=== PATIENT | female | born 1965 | race Caucasian/White ===

== ENCOUNTER 2018-05-11 23:00 | Emergency (ER) | payer OTHER ==
[~2018-05-11] VITALS: Ht 167.6 cm; Wt 90.7 kg
[2018-05-11 23:00] VITALS: BP_SYST 124
[~2018-05-11 23:00] MED LIST: CLARATIN; PTU; THYROID MED PO; benadryl; excedrin
[2018-05-12] MEDS ORDERED: NACL 0.9% 1,000 ML IV ONE (00:04)
[2018-05-12] MEDS ORDERED: MAG HYDROX/AL HYDROX/SIMETH 30 ML, BELLADONNA ALKALOIDS/PHENOBARB 10 ML, LIDOCAINE VISC... PO ONE ×3 (00:15)
[2018-05-12] MEDS ORDERED: ASPIRIN 81 MG TAB.CHEW PO ONE (00:15)
[2018-05-12] MEDS ORDERED: MORPHINE 4 MG/ML INJ. SYRINGE IVP ONE (00:15)
[2018-05-12] MEDS ORDERED: NITROGLYCERIN 0.4 MG TAB.SUBL SL ONE (00:15)
[2018-05-12] MEDS ORDERED: ONDANSETRON HCL 4 MG/2 ML VIAL IVP ONE ×2 (00:15)
[2018-05-12] MEDS ORDERED: LORazepam 2 MG/ML VIAL (FOR ER USE) IVP ONE (00:15)
[2018-05-12 00:37] LABS: HEMATOCRIT 39.3 % (36-48); HEMOGLOBIN 12.6 g/dL (12.0-16.0); MEAN CORPUSCULAR HEMOGLOBIN 26 pg (27-31); MEAN CORPUSCULAR HGB CONC 32 % (32-36); MEAN CORPUSCULAR VOLUME 82 fL (79.0-98.0); PLATELET COUNT (AUTO) 362 K/uL (130-430); RED BLOOD CELL COUNT(AUTO) 4.79 MIL/uL (4.2-6.2); RED CELL DISTRIBUTION WIDTH 12.8 % (9.0-15.0)
[2018-05-12 00:50] LABS: CALCIUM 9.5 mg/dL (8.4-11.0); CREATININE 0.75 mg/dL (0.55-1.30); POTASSIUM 3.9 mmol/L (3.5-5.1)
[2018-05-12 00:57] LABS: ALBUMIN 3.1 g/dL (3.4-4.8); TOTAL BILIRUBIN 0.3 mg/dL (0.0-1.0)
[2018-05-12 01:02] LABS: PROTHROMBIN TIME 10.4 SECS (9.5-12.5)
[2018-05-12 02:09] LABS: BAND % (MANUAL) 5 % (0-6)
[2018-05-12 02:11] LABS: BASOPHILS % (MANUAL) 0 % (0-2); EOSINOPHILS % (MANUAL) 2 % (0-7); LYMPHOCYTES % (MANUAL) 17 % (20-46); MONOCYTES % (MANUAL) 6 % (0-11)
[2018-05-12 03:01] LABS: BILIRUBIN,URINE NEGATIVE (NEGATIVE); BLOOD, URINE 1+ (NEGATIVE); CLARITY/URINE CLEAR (CLEAR); COLOR,URINE YELLOW (YELLOW); GLUCOSE,URINE NEGATIVE (NEGATIVE); KETONES,URINE NEGATIVE (NEGATIVE); LEUKOCYTE ESTERASE ,URINE NEGATIVE (NEGATIVE); NITRITE, URINE NEGATIVE (NEGATIVE); PH,URINE 5.5 (5.0-8.0); PROTEIN URINE NEGATIVE (NEGATIVE); UROBILINOGEN,URINE 0.2 (0.2-1.0)
[2018-05-12] MEDS ORDERED: IOHEXOL 350 mgI/mL, 150 ML INFUS..BTL IV ONE (03:40)
[2018-05-12] MEDS ORDERED: KETOROLAC TROMETHAMINE 15 MG VIAL IVP ONE (04:30)
[2018-05-12 04:41] LABS: BACTERIA,URINE FEW /HPF (None Seen); WBC,URINE 0-3 /HPF (0-3)
[2018-05-12 04:42] LABS: MUCUS,URINE None Seen /LPF (None Seen); YEAST,URINE None Seen /HPF (None Seen)
[2018-05-12 06:00] VITALS: BP_SYST 104
== END 2018-05-12 06:16 | disposition home or self-care (01) ==
LOC: SED 23:00
DX: R07.89 Other chest pain (principal); E78.00 Pure hypercholesterolemia, unspecified; Z90.49 Acquired absence of other specified parts of digestive tract; Z98.51 Tubal ligation status
CPT/HCPCS: 36415; 71045; 71275; 80053; 81000; 82550; 83690; 83880; 84484; 85007; 85027; 85610; 85730; 93005 ×2; 93970; 96374; 96375; 99285; J1885; J2001; J2060; J2270; J2405; J7030; Q9967

== ENCOUNTER 2018-06-11 17:37 | Inpatient (IN) | payer OTHER ==
[2018-06-11] VITALS (7 sets, daily range): BP systolic 114–136
[~2018-06-11] VITALS: Ht 167.6 cm; Wt 91.6 kg
--- NOTE | 2018-06-11 17:50 | NUR ---
Pt placed in bed 5
--- NOTE | 2018-06-11 18:00 | NUR ---
Patient arrived from urgent care via POV with at bedside. patient is AOx4 withcomplaints of feeling very ill. Patient is tachypneic, diaphoretic and states "I feel dry." patient states she was just at the [facility] Urgent Care where she was diagnosied with pneumonia. The MD at [facility] Urgent Care told her to come to the emergency room for further testing. patient denies any other complaints or injuries at this time.
--- NOTE | 2018-06-11 18:03 | NUR ---
ER Dr. Griggs at bedside examining patient.
[2018-06-11] MEDS ORDERED: ALBUTEROL SULFATE 0.083% 2.5 MG/3 ML VIAL.NEB INH ONE (18:15)
[2018-06-11] MEDS ORDERED: ALBUTEROL SULFATE 0.083% 2.5 MG/3 ML VIAL.NEB INH PRN ×3 (18:15→19:15)
[2018-06-11] MEDS ORDERED: IPRATROPIUM BROM 0.5 MG/2.5 ML VIAL.NEB (ATROVENT) INH SCH (18:15)
[2018-06-11] MEDS ORDERED: LEVOFLOXACIN 500 MG/D5W 100 ML IV ONE ×2 (18:15→21:24)
--- NOTE | 2018-06-11 18:30 | NUR ---
Pt HR 172. Pt experiencing mild chest pain. Dr. Griggs at bedside. Orders to be received.
[2018-06-11 18:33] LABS: BILIRUBIN,URINE 1+ (NEGATIVE); BLOOD, URINE 3+ (NEGATIVE); CLARITY/URINE SL CLOUDY (CLEAR); COLOR,URINE YELLOW (YELLOW); GLUCOSE,URINE NEGATIVE (NEGATIVE); KETONES,URINE 3+ (NEGATIVE); LEUKOCYTE ESTERASE ,URINE TRACE (NEGATIVE); NITRITE, URINE NEGATIVE (NEGATIVE); PH,URINE 5.5 (5.0-8.0); PROTEIN URINE 2+ (NEGATIVE)
[2018-06-11 18:46] LABS: BACTERIA,URINE MANY /HPF (None Seen); MUCUS,URINE None Seen /LPF (None Seen)
--- NOTE | 2018-06-11 18:46 | NUR ---
2nd EKG done at bedside
[2018-06-11 18:47] LABS: BASOPHILS % (AUTO) 0.4 % (0.0-2.0); EOSINOPHILS % (AUTO) 0.1 % (0.0-4.0); HEMATOCRIT 35.1 % (36-48); HEMOGLOBIN 10.9 g/dL (12.0-16.0); LYMPHOCYTES # (AUTO) 0.8 K/uL (1.0-5.5); LYMPHOCYTES % (AUTO) 9.4 % (20.5-51.5); MEAN CORPUSCULAR HEMOGLOBIN 25 pg (27-31); MEAN CORPUSCULAR HGB CONC 31 % (32-36); MEAN CORPUSCULAR VOLUME 80 fL (79.0-98.0); MONOCYTES # (AUTO) 0.2 K/uL (0.0-1.0); MONOCYTES % (AUTO) 2.6 % (1.7-9.3); NEUTROPHILS % (AUTO) 87.5 % (40.0-70.0); PLATELET COUNT (AUTO) 251 K/uL (130-430); RED CELL DISTRIBUTION WIDTH 13.2 % (9.0-15.0)
[2018-06-11 18:47] LABS: COARSE GRANULAR CASTS,URINE 0-10 /LPF (None Seen)
[2018-06-11] MEDS ORDERED: DILTIAZEM HCL 25 MG/5 ML VIAL ONE (18:59)
[2018-06-11] MEDS ORDERED: AMIODARONE HCL 900 MG in D5W 482 ML IV ONE (19:00)
[2018-06-11] MEDS ORDERED: ASPIRIN 325 MG TABLET PO ONE (19:00)
[2018-06-11] MEDS ORDERED: DILTIAZEM HCL 25 MG/5 ML VIAL IVP ONE (19:00)
[2018-06-11] MEDS ORDERED: NACL 0.9% 1,000 ML IV ONE (19:00)
[2018-06-11] MEDS ORDERED: AMIODARONE HCL 150 MG in D5W 97 ML IV ONE (19:00)
[2018-06-11] MEDS: IPRATROPIUM BROM 0.5 MG/2.5 ML VIAL.NEB (ATROVENT) INH SCH ×2 (19:00→19:02)
[2018-06-11 19:01] LABS: CALCIUM 8.6 mg/dL (8.4-11.0); CREATININE 0.79 mg/dL (0.55-1.30); POTASSIUM 3.3 mmol/L (3.5-5.1)
[2018-06-11 19:02] LABS: INR 1.2 (0.8-1.2); PROTHROMBIN TIME 11.9 SECS (9.5-12.5)
[2018-06-11 19:05] LABS: ALBUMIN 2.5 g/dL (3.4-4.8); TOTAL BILIRUBIN 0.4 mg/dL (0.0-1.0)
[2018-06-11] MEDS ORDERED: AMIODARONE HCL 150 MG/3ML VIAL ONE (19:08)
[2018-06-11] MEDS ORDERED: AMIODARONE HCL 900 MG/18 ML VIAL IV ONE (19:08)
[2018-06-11] MEDS ORDERED: PIPERACILLIN/TAZO 3.375/DEX-IS 50 ML IV SCH (19:15)
[2018-06-11] MEDS ORDERED: IPRATROPIUM/ALBUTEROL SULFATE 3 ML AMPUL.NEB (DUONEB) INH PRN (19:15)
[2018-06-11] MEDS ORDERED: MAGNESIUM SULFATE 4 GM in D5W 250 ML IV ONE (19:15)
[2018-06-11] MEDS ORDERED: LEVOFLOXACIN 500 MG/D5W 100 ML IV SCH (19:15)
[2018-06-11] MEDS ORDERED: ONDANSETRON HCL 4 MG/2 ML VIAL IVP PRN (19:15)
[2018-06-11] MEDS ORDERED: MAGNESIUM SULFATE 100 ML IV ONE (19:29)
[2018-06-11] MEDS ORDERED: POTASSIUM CHLORIDE 40 MEQ in NS 250 ML IV ONE (19:30)
[2018-06-11] MEDS ORDERED: LEVOFLOXACIN 250 MG/D5W 50 ML IV ONE (19:30)
[2018-06-11] MEDS ORDERED: KCL 20 mEq in 100 mL (PREMIX) 200 ML IV ONE (19:30)
[2018-06-11 19:32] LABS: THYROID STIMULATING HORMONE < 0.01 uIu/mL (0.34-4.82)
--- NOTE | 2018-06-11 20:35 | NUR ---
Patient will be admitted to care of Dr. Woods. Admitted to ICU unit. Will go to room 4. Belongings list completed. Summary report printed. Report will be given at bedside.
--- NOTE | 2018-06-11 20:40 | NUR ---
ICU ADMISSION Pt is alert and oriented. AFIB on monitor. Pt on Amiodarone drip. 02 via NC @ 2L, SPO2 above 92%. Skin intact. IV22G to left and right forearm, no signs of infiltration noted. Safety precautions in place, call light within reach. Will continue to monitor.
--- NOTE | 2018-06-11 20:48 | NUR ---
CONSULTATION PAGED/CALLED Reason for Consultation: PNEUMONIA Person Who was Notified: INDER Consulting Physician: DR. ASHBY Welfare Administrator Specialty: PULMO Ordering Physician: DR. ROJAS
--- NOTE | 2018-06-11 20:55 | NUR ---
ROUNDS DR. CRYSTAL SIDHU AT PT BEDSIDE
[2018-06-11] MEDS ORDERED: METOPROLOL TARTRATE 25 MG TABLET PO SCH (21:00)
[2018-06-11] MEDS ORDERED: DIGOXIN 0.5 MG/2 ML AMP IVP ONE (21:15)
[2018-06-11] MEDS ORDERED: PIPERACILLIN/TAZOBACTAM 3.375 GM/VIAL (ZOSYN) IV ONE (21:25)
[2018-06-11] MEDS ORDERED: METOPROLOL TARTRATE 5 MG/5 ML VIAL IVP ONE (21:30)
--- NOTE | 2018-06-11 21:30 | NUR ---
MD ROUNDS DR. ASHBY AT BEDSIDE.
[2018-06-11] MEDS: MORPHINE 4 MG/ML INJ. SYRINGE IVP PRN (21:37)
[2018-06-11] MEDS: ENOXAPARIN SODIUM 100 MG/ML SYRINGE SQ SCH (21:38)
--- NOTE | 2018-06-11 21:52 | NUR ---
CONSULTATION PAGED/CALLED Reason for Consultation: AFIB Person Who was Notified: INDER Consulting Physician: DR. VERDUGO; ACOSTA- DR. PÉREZ Supervisor Pig Machine Specialty: CARDIO Ordering Physician: DR. ROJAS
--- NOTE | 2018-06-11 21:59 | NUR ---
PAGED DR. ÉPREZ (PLANT PRODUCTION MANAGER FOR [employer]) PAGED.
[2018-06-11] MEDS ORDERED: INDOMETHACIN 50 MG SUPP.RECT RC ONE (22:00)
--- NOTE | 2018-06-11 22:05 | NUR ---
Dr. Son spoke to Dr. Marin about pts current status. No new orders. Will continue to monitor.
[2018-06-11] MEDS: NACL 0.9% 1,000 ML IV SCH (22:14)
[2018-06-11] MEDS ORDERED: PROPRANOLOL HCL 10 MG TABLET (INDERAL) ONE ×3 (22:25→23:08)
[2018-06-11] MEDS: PROPRANOLOL HCL 10 MG TABLET (INDERAL) PO SCH (22:28)
[2018-06-11] MEDS: ACETAMINOPHEN 325 MG TABLET PO PRN (22:34)
[2018-06-11] MEDS ORDERED: PIPERACILLIN/TAZO 3.375/DEX-IS 50 ML IV ONE (23:15)
[2018-06-11] MEDS ORDERED: AMIODARONE HCL 900 MG in D5W 482 ML IV SCH (23:30)
[2018-06-12] VITALS (23 sets, daily range): BP systolic 96–155
[2018-06-12] MEDS: KETOROLAC TROMETHAMINE 15 MG VIAL ONE ×2 (00:27→00:29)
[2018-06-12] MEDS: KETOROLAC TROMETHAMINE 30 MG VIAL IVP PRN ×2 (00:29→17:07)
[2018-06-12] MEDS: IPRATROPIUM BROM 0.5 MG/2.5 ML VIAL.NEB (ATROVENT) INH SCH ×2 (00:57→19:51)
[2018-06-12] MEDS: PROPRANOLOL HCL 10 MG TABLET (INDERAL) PO SCH ×3 (06:34→21:08)
[2018-06-12] MEDS: MORPHINE 4 MG/ML INJ. SYRINGE IVP PRN ×2 (06:37→21:06)
[2018-06-12 06:38] LABS: BARBITURATE, URINE NEGATIVE (NEG <=200); BENZODIAZEPINE, URINE NEGATIVE (NEG <=150); CANNABINOID, URINE NEGATIVE (NEG <=50); COCAINE, URINE NEGATIVE (NEG <=150); METHAMPHETAMINES SCREEN,URINE NEGATIVE (NEG <=500); OPIATE, URINE POSITIVE (NEG <=100); PHENCYCLIDINE SCREEN,URINE NEGATIVE (NEG <=25); URINE AMPHETAMINE NEGATIVE (NEG <=500); URINE METHADONE NEGATIVE (NEG <=200)
[2018-06-12 06:39] LABS: UR TRICYCLIC ANTIDEPRESSANTS NEGATIVE (NEG <=300); URINE OXYCODONE SCREEN NEGATIVE (NEG <=100); URINE PROPOXYPHENE SCREEN NEGATIVE (NEG <=300)
[2018-06-12 07:15] LABS: BASOPHILS % (AUTO) 0.3 % (0.0-2.0); EOSINOPHILS # (AUTO) 0.1 K/uL (0.0-0.4); EOSINOPHILS % (AUTO) 0.6 % (0.0-4.0); HEMOGLOBIN 11.4 g/dL (12.0-16.0); LYMPHOCYTES # (AUTO) 0.9 K/uL (1.0-5.5); LYMPHOCYTES % (AUTO) 10.6 % (20.5-51.5); MEAN CORPUSCULAR HEMOGLOBIN 26 pg (27-31); MEAN CORPUSCULAR HGB CONC 33 % (32-36); MEAN CORPUSCULAR VOLUME 81 fL (79.0-98.0); MONOCYTES # (AUTO) 0.5 K/uL (0.0-1.0); MONOCYTES % (AUTO) 6.5 % (1.7-9.3); NEUTROPHILS # (AUTO) 6.9 K/uL (1.8-7.7); PLATELET COUNT (AUTO) 239 K/uL (130-430); RED BLOOD CELL COUNT(AUTO) 4.34 MIL/uL (4.2-6.2); RED CELL DISTRIBUTION WIDTH 13.9 % (9.0-15.0); WHITE BLOOD COUNT (AUTO) 8.4 K/uL (4.8-10.8)
--- NOTE | 2018-06-12 07:20 | NUR ---
ENDORSEMENT Pt care endorsed to CÉSAR Jerez at bedside using nursing SBAR.
--- NOTE | 2018-06-12 07:30 | NUR ---
OPENING NOTE RECEIVED SBAR REPORT FROM CÉSAR MERIDA AT BEDSIDE. BED IN LOWEST POSITION, CALL LIGHT WITHIN REACH, AND BED ALARM IS ACTIVE. SEE VS FLOW SHEET.
[2018-06-12 07:58] LABS: TOTAL IRON BIND. CAPACITY 179 ug/dL (250-450)
[2018-06-12 08:01] LABS: ALANINE AMINOTRANSFERASE 41 U/L (12-78); ALBUMIN 2.1 g/dL (3.4-4.8); ANION GAP 10 (5-15); ASPARTATE AMINOTRANSFERASE 49 U/L (10-37); CHLORIDE 101 mmol/L (98-107); FREE T4 (FREE THYROXINE) 1.5 ng/dL (0.6-1.6); GLUCOSE 109 mg/dL (70-99); SODIUM SERUM 134 mmol/L (136-145); THYROID STIMULATING HORMONE < 0.01 uIu/mL (0.34-4.82); TOTAL BILIRUBIN 0.5 mg/dL (0.0-1.0); UREA NITROGEN, BLOOD 15 mg/dL (8-21)
[2018-06-12 08:17] LABS: GFR AFRICAN AMERICAN 113 mL/min (>90)
[2018-06-12 08:18] LABS: POTASSIUM 4.9 mmol/L (3.5-5.1)
[2018-06-12] MEDS ORDERED: METOPROLOL TARTRATE 25 MG TABLET PO SCH (09:00)
[2018-06-12] MEDS: NACL 0.9% 1,000 ML IV SCH ×2 (10:09→15:43)
[2018-06-12] MEDS: cefTRIAXone 1 GM IVPB PREMIX 50 ML IV SCH (10:09)
[2018-06-12] MEDS: ENOXAPARIN SODIUM 100 MG/ML SYRINGE SQ SCH ×2 (10:13→21:07)
[2018-06-12] MEDS: ACETAMINOPHEN 325 MG TABLET PO PRN ×2 (10:23→23:11)
--- NOTE | 2018-06-12 10:25 | NUR ---
FEBRILE PT HAS A Hx OF FEVER. TEMP WAS 98.4 AT 0800, BUT IS NOW 104.8. TYLENOL ADMINISTERED ORDERED PRN, BLANKETS REMOVED, AND ICE PACKS APPLIED.
--- NOTE | 2018-06-12 11:55 | NUR ---
DR. VERDUGO (NURSING UNIT COORDINATOR) AT BEDSIDE NEW ORDERS RECEIVED.
--- NOTE | 2018-06-12 12:00 | NUR ---
TEMPERATURE 98.7
[2018-06-12] MEDS ORDERED: NACL 0.9% 1,000 ML IV ONE (12:15)
--- NOTE | 2018-06-12 12:35 | NUR ---
DR. ASHBY (REGIONAL PLANNER) AT BEDSIDE NEW ORDERS RECEIVED
[2018-06-12] MEDS ORDERED: PROMETHAZINE 6.25 MG/ CODEINE 10 MG/ 5 ML PO PRN (12:45)
[2018-06-12] MEDS: BENZONATATE 100 MG CAPSULE (TESSALON) PO SCH ×2 (14:28→21:07)
[2018-06-12] MEDS: AZITHROMYCIN 500 MG in NS 250 ML IV SCH (14:28)
[2018-06-12] MEDS ORDERED: KETOROLAC TROMETHAMINE 15 MG VIAL ONE (17:11)
--- NOTE | 2018-06-12 19:20 | NUR ---
ENDORSEMENT SBAR REPORT ENDORSED TO PM RN AT BEDSIDE.
--- NOTE | 2018-06-12 19:30 | NUR ---
TRANSFER OF CARE Report received from AM shift RN. Pt in bed AAOX4, VSS with AFIB on the monitor. IV on the RFA, LFA patent and no infiltration noted. Skin is non intact, noted a red rash on the left forearm. Safety precaution observed, call light within reach. No fever noted. Will continue to monitor Pt.
[2018-06-12] MEDS: DILTIAZEM HCL 25 MG/5 ML VIAL IVP PRN (22:19)
[2018-06-13] VITALS (24 sets, daily range): BP systolic 109–154
--- NOTE | 2018-06-13 | NUR ---
REASSESSMENT Pt in bed, temperature elevated at 101, will give PRN tylenol for fever. Will continue to monitor Pt.
[2018-06-13] MEDS: IPRATROPIUM BROM 0.5 MG/2.5 ML VIAL.NEB (ATROVENT) INH SCH ×4 (01:01→19:43)
--- NOTE | 2018-06-13 02:00 | NUR ---
CHG Cleaned and repositioned Pt, Pt able to tolerate well.
--- NOTE | 2018-06-13 04:00 | NUR ---
REASSESSMENT Pt in bed, no acute distress at this time. Will continue to monitor Pt.
[2018-06-13] MEDS: NACL 0.9% 1,000 ML IV SCH ×2 (04:23→18:23)
[2018-06-13] MEDS: DILTIAZEM HCL 25 MG/5 ML VIAL IVP PRN (04:25)
[2018-06-13] MEDS: PROPRANOLOL HCL 10 MG TABLET (INDERAL) PO SCH ×3 (05:09→21:23)
[2018-06-13] MEDS: ACETAMINOPHEN 325 MG TABLET PO PRN ×2 (05:09→10:01)
[2018-06-13] MEDS: MORPHINE 4 MG/ML INJ. SYRINGE IVP PRN ×3 (05:45→18:38)
--- NOTE | 2018-06-13 06:34 | NUR ---
CLOSING NOTES Pt in bed, no acute distress at this time. Dr. Early at bedside for medical evaluation. Will give report to oncoming RN.
--- NOTE | 2018-06-13 06:40 | NUR ---
CONSULTATION PAGED/CALLED Reason for Consultation: HYPERTHYROID Person Who was Notified: DEREK Consulting Physician: ANTONIO CRAWFORD Lemon Picker Specialty: ENDOCRINOLOGY Ordering Physician: DR. RIBEIRO
[2018-06-13 06:53] LABS: BASOPHILS % (AUTO) 0.2 % (0.0-2.0); EOSINOPHILS % (AUTO) 0.4 % (0.0-4.0); HEMATOCRIT 32.6 % (36-48); HEMOGLOBIN 10.8 g/dL (12.0-16.0); LYMPHOCYTES # (AUTO) 1.1 K/uL (1.0-5.5); LYMPHOCYTES % (AUTO) 12.6 % (20.5-51.5); MEAN CORPUSCULAR HEMOGLOBIN 26 pg (27-31); MEAN CORPUSCULAR HGB CONC 33 % (32-36); MEAN CORPUSCULAR VOLUME 80 fL (79.0-98.0); MONOCYTES # (AUTO) 0.8 K/uL (0.0-1.0); MONOCYTES % (AUTO) 8.9 % (1.7-9.3); NEUTROPHILS % (AUTO) 77.9 % (40.0-70.0); PLATELET COUNT (AUTO) 252 K/uL (130-430); RED BLOOD CELL COUNT(AUTO) 4.09 MIL/uL (4.2-6.2); RED CELL DISTRIBUTION WIDTH 13.8 % (9.0-15.0); WHITE BLOOD COUNT (AUTO) 8.9 K/uL (4.8-10.8)
[2018-06-13 06:55] LABS: ALBUMIN 1.9 g/dL (3.4-4.8); CREATININE 0.75 mg/dL (0.55-1.30); POTASSIUM 3.9 mmol/L (3.5-5.1); TOTAL BILIRUBIN 0.3 mg/dL (0.0-1.0)
--- NOTE | 2018-06-13 07:25 | NUR ---
RN OPENING NOTE RECEIVED SBAR REPORT FROM ENDORSING RN AT BEDSIDE. PT EDUCATED ON UNIT SAFETY AND DEMONSTRATED ABILITY TO USE CALL LIGHT. BED IN LOWEST POSITION, CALL LIGHT WITHIN REACH, AND BED ALARM IS ACTIVE. SEE VS FLOW SHEET
--- NOTE | 2018-06-13 08:46 | NUR ---
DR. VERDUGO AT BEDSIDE
--- NOTE | 2018-06-13 09:11 | NUR ---
Nutrition Update Jesse Scale 17 noted. Pt admitted for pneumonia, atrial fibrillation, pyelonephritis Diet: regular diet BMI: 32.8 kg/m2 RD to follow per nutrition care standards.
[2018-06-13] MEDS: BENZONATATE 100 MG CAPSULE (TESSALON) PO SCH ×3 (10:01→21:21)
[2018-06-13] MEDS: APIXABAN 2.5 MG TABLET PO SCH ×2 (10:01→21:17)
[2018-06-13] MEDS: cefTRIAXone 1 GM IVPB PREMIX 50 ML IV SCH (10:02)
[2018-06-13] MEDS ORDERED: VANCOMYCIN HCL 1,250 MG in NS 250 ML IV SCH (10:30)
[2018-06-13] MEDS: AZITHROMYCIN 500 MG in NS 250 ML IV SCH (12:34)
--- NOTE | 2018-06-13 12:34 | NUR ---
DR. LEO (ID) AT BEDSIDE NEW ORDERS RECEIVED.
[2018-06-13] MEDS: PIPERACILLIN/TAZO 4.5GM/DEX-IS 100 ML IV SCH ×2 (15:41→21:23)
--- NOTE | 2018-06-13 19:15 | NUR ---
ENDORSEMENT SBAR REPORT ENDORSED TO RECEIVING RN AT BEDSIDE.
--- NOTE | 2018-06-13 19:40 | NUR ---
OPENING NOTE Received report from Solitario at bedside. Patient resting in the bed. No acute distress. On O2 5L/min via oximizer. AAO x 4. Denied of pain at this time. Skin warm and dry to touch. IV intact to LFA, no redness, no swelling, no drainage. On NS at 75ml/hr, infusing well. Discussed the safety issue, use call light when need help, and plan of care, verbally understanding. Safety measure maintained. Bed locked in low position, side rails up. Call light within reached. Will continue to monitor.
--- NOTE | 2018-06-13 21:00 | NUR ---
DR RIBEIRO MADE AWARE THAT DR FLETCHER HAS NOT SHOWED-UP FOR CONSULT.DR RIBEIRO WILL TAKE CARE OF IT IN AM.
[2018-06-13] MEDS: OSELTAMIVIR PHOSPHATE 75 MG CAPSULE PO SCH (21:21)
--- NOTE | 2018-06-13 21:50 | NUR ---
BEDSIDE COMMODE Using bedside commode with assistance. No acute distress. Assisted back to bed. Continue on o2 via oximizer. Safety measure maintained. Call light within reached. Bed locked in low position, side rails up. Continue to monitor.
[2018-06-14] VITALS (16 sets, daily range): BP systolic 106–146
[2018-06-14] MEDS: NACL 0.9% 1,000 ML IV SCH ×2 (00:09→20:44)
--- NOTE | 2018-06-14 00:10 | NUR ---
ZOFRAN GIVEN Patient vomited x 1 with white sputum noted. Zofran 4mg IVP given as ordered. No acute distress. Continue on O2 5L/min via oximizer. Iv intact, IVF infusing well. Safety measure maintained. Bed locked in low position, side rails up. Call light within reached. Continue to monitor.
[2018-06-14] MEDS: IPRATROPIUM BROM 0.5 MG/2.5 ML VIAL.NEB (ATROVENT) INH SCH ×4 (00:47→19:41)
[2018-06-14 03:06] LABS: T4 (THYROXINE) 9.4 ug/dL (4.5-12.0)
[2018-06-14] MEDS: ACETAMINOPHEN 325 MG TABLET PO PRN ×2 (03:07→13:45)
--- NOTE | 2018-06-14 03:07 | NUR ---
TYLENOL GIVEN Patient c/o headache 09/25, Tylenol 650ng PO given as ordered. No acute distress. Continue on O2 5L/min via oximizer. Iv intact, IVF infusing well. Safety measure maintained. Bed locked in low position, side rails up. Call light within reached. Continue to monitor.
--- NOTE | 2018-06-14 03:25 | NUR ---
CHG BATH GIVEN
--- NOTE | 2018-06-14 05:12 | NUR ---
ROUND Patient resting in the bed. No acute distress. Continue on O2 5L/min via oximizer. Skin warm and dry to touch. IV intct, IVF infusing well. Safety measure maintained. Bed locked in low position, side rails up. Call light within reached. Continue to monitor.
[2018-06-14] MEDS: PROPRANOLOL HCL 10 MG TABLET (INDERAL) PO SCH ×3 (05:59→21:54)
[2018-06-14] MEDS: PIPERACILLIN/TAZO 4.5GM/DEX-IS 100 ML IV SCH (06:00)
[2018-06-14 06:46] LABS: CREATININE 0.67 mg/dL (0.55-1.30); POTASSIUM 3.4 mmol/L (3.5-5.1)
[2018-06-14 06:58] LABS: ALBUMIN 1.8 g/dL (3.4-4.8); TOTAL BILIRUBIN 0.4 mg/dL (0.0-1.0)
[2018-06-14 06:59] LABS: BASOPHILS % (AUTO) 0.2 % (0.0-2.0); EOSINOPHILS # (AUTO) 0.1 K/uL (0.0-0.4); EOSINOPHILS % (AUTO) 0.9 % (0.0-4.0); HEMATOCRIT 31.5 % (36-48); HEMOGLOBIN 10.5 g/dL (12.0-16.0); LYMPHOCYTES # (AUTO) 1.5 K/uL (1.0-5.5); LYMPHOCYTES % (AUTO) 15.2 % (20.5-51.5); MEAN CORPUSCULAR HEMOGLOBIN 27 pg (27-31); MEAN CORPUSCULAR HGB CONC 33 % (32-36); MEAN CORPUSCULAR VOLUME 81 fL (79.0-98.0); MONOCYTES % (AUTO) 9.6 % (1.7-9.3); NEUTROPHILS # (AUTO) 7.4 K/uL (1.8-7.7); NEUTROPHILS % (AUTO) 74.1 % (40.0-70.0); PLATELET COUNT (AUTO) 284 K/uL (130-430); RED BLOOD CELL COUNT(AUTO) 3.91 MIL/uL (4.2-6.2); RED CELL DISTRIBUTION WIDTH 13.8 % (9.0-15.0)
--- NOTE | 2018-06-14 07:30 | NUR ---
RN OPENING NOTE RECEIVED SBAR REPORT FROM ENDORSING RN AT BEDSIDE. BED IN LOWEST POSITION, CALL LIGHT WITHIN REACH, AND BED ALARM IS ACTIVE. SEE VS FLOW SHEET
--- NOTE | 2018-06-14 07:31 | NUR ---
CLOSING NOTE Report given to CÉSAR Jerez at bedside. Patient resting in the bed. No acute distress. Continue on O2 5L/min via oximizer. Skin warm and dry to touch. Assisted to bedside commode as needed. IV intact, IVF infusing well. All needs met. Safety measure maintained. Call light within reached. Bed locked in low position, side rails up. Continue care by morning shift nurse.
[2018-06-14] MEDS: BENZONATATE 100 MG CAPSULE (TESSALON) PO SCH ×3 (09:22→20:45)
[2018-06-14] MEDS: OSELTAMIVIR PHOSPHATE 75 MG CAPSULE PO SCH ×2 (09:23→20:44)
[2018-06-14] MEDS: APIXABAN 2.5 MG TABLET PO SCH ×2 (09:23→20:50)
[2018-06-14] MEDS: MORPHINE 4 MG/ML INJ. SYRINGE IVP PRN (09:24)
--- NOTE | 2018-06-14 09:35 | NUR ---
DR. RIBEIRO AT BEDSIDE: TRANS TO TELEMETRY.
--- NOTE | 2018-06-14 09:40 | NUR ---
DR. VERDUGO (CARDIO) AT BEDSIDE NO NEW ORDERS
--- NOTE | 2018-06-14 09:45 | NUR ---
DR. ESCALONA AT BEDSIDE NEW ORDERS RECEIVED
[2018-06-14] MEDS ORDERED: POTASSIUM CHLORIDE 20 MEQ TAB.PRT.SR PO ONE (10:45)
--- NOTE | 2018-06-14 11:05 | NUR ---
PT TRANSFERRED TO TELEMETRY TRANSPORTED PT VIA GURNEY ON CORROSION CONTROL SPECIALIST AND 02 THERAPY TO TELEMETRY BED 110-B. RN REMAINED WITH PT ENTIRE TIME PER ACLS GUIDELINES. SBAR REPORT ENDORSED TO RECEIVING RN AT BEDSIDE.
--- NOTE | 2018-06-14 12:00 | NUR ---
opening note patient is resting in bed, A&Ox4, assessment completed, educated resolution rep light system and plan of care, patient verbalized understanding, no other needs at this time, IV line patent and intact, bed at the lowest position, bed alarm on, two side rails up, call light within reach, fall and aspiration precautions in place.
[2018-06-14] MEDS: AZITHROMYCIN 500 MG in NS 250 ML IV SCH (12:15)
--- NOTE | 2018-06-14 12:15 | NUR ---
Medication patient is resting in bed, educated on medication use and side effects, patient verbalized understanding and tolerated well, no other needs at this time, IV line patent and intact, bed at the lowest position, bed alarm on, two side rails up, call light within reach, fall and aspiration precautions in place.
--- NOTE | 2018-06-14 13:37 | NUR ---
Medication patient is resting in bed, left forearm IV infiltrated and was removed, changed fluids to right forearm IV line, will continue to monitor, educated on medication use and side effects, patient verbalized understanding and tolerated well, no other needs at this time, and intact, bed at the lowest position, bed alarm on, two side rails up, call light within reach, fall and aspiration precautions in place.
--- NOTE | 2018-06-14 14:30 | NUR ---
IV Re-insertion Complaining of pain to IV site. Restarted on Left hand 22G . Successful after 1 attempts. Resumed current IVF of NS at 75ml/hour. Will observe for any signs of infiltration.
--- NOTE | 2018-06-14 15:09 | NUR ---
Medication patient is resting in bed, visitor present at the bedside, educated on medication use and side effects, patient verbalized understanding and tolerated well, no other needs at this time, IV line patent and intact, bed at the lowest position, bed alarm on, two side rails up, call light within reach, fall and aspiration precautions in place.
--- NOTE | 2018-06-14 17:40 | NUR ---
Dr Wilson rounds assessed patient at the bedside, new orders, will follow through.
[2018-06-14] MEDS ORDERED: cefTRIAXone 1 GM in D5W 50 ML IV ONE (18:00)
[2018-06-14] MEDS: METHIMAZOLE 5 MG TABLET PO SCH (18:14)
--- NOTE | 2018-06-14 18:50 | NUR ---
closing note patient is resting in bed, patient states there is no pain in the IV site, all needs met for the shift, will endorse report to noc shift nurse, patient verbalized understanding and tolerated well, no other needs at this time, IV line patent and intact, bed at the lowest position, bed alarm on, two side rails up, call light within reach, fall and aspiration precautions in place.
--- NOTE | 2018-06-14 20:00 | NUR ---
Opening notes Pt AAOx4. VSS, afebrile. No acute distress noted. Pt saturation at 96% on O2 4L via Oximizer. Pt coughing, gets breathing txmt. Pt assisted to the bathroom, pt voided. IVF infusing L. hand 22G clear, patent. Encouraged pt to call for assistance. Pt verbalized understanding. Call light within reach. Bed alarm on. Will continue to monitor.
--- NOTE | 2018-06-14 22:05 | NUR ---
Rounds Pt asleep, easily arousable. No s/s distress or discomfort noted. Call light within reach. To monitor.
[2018-06-15] MEDS: IPRATROPIUM BROM 0.5 MG/2.5 ML VIAL.NEB (ATROVENT) INH SCH ×4 (00:20→19:44)
--- NOTE | 2018-06-15 02:18 | NUR ---
Rounds Pt asleep. No s/s distress noted. Call light within reach. To monitor.
[2018-06-15] MEDS: ACETAMINOPHEN 325 MG TABLET PO PRN (03:00)
--- NOTE | 2018-06-15 03:02 | NUR ---
Rounds/Pain mgmt Pt awake sitting in bed, HR 130's, pt c/o headache medicated with Tylenol 2 tabs. HR down to 117. Call light within reach. Will continue to monitor.
[2018-06-15] MEDS: PROPRANOLOL HCL 10 MG TABLET (INDERAL) PO SCH ×3 (05:46→21:02)
--- NOTE | 2018-06-15 05:50 | NUR ---
Closing notes Pt awake, VSS. No s/s distress noted. BP 126/79 HR 104. Inderal 40mg given PO. IVF infusing as ordered L. hand 22G no s/s infiltration noted. Call light/items within reach. Pt instructed to call nurse for Urine sample container in bathroom, pt verbalized understanding. To endorse to AM nurse.
--- NOTE | 2018-06-15 07:35 | NUR ---
opening note patient is resting in bed, RT is at the bedside, A&Ox4, assessment completed, educated counter person light system and ways to prevent SOB, patient verbalized understanding, no other needs at this time, bed at the lowest position, bed alarm on, call light within reach, two side rails up, fall and aspiration precautions in place.
[2018-06-15 07:51] VITALS: BP_SYST 128
[2018-06-15] MEDS: OSELTAMIVIR PHOSPHATE 75 MG CAPSULE PO SCH ×2 (08:39→21:02)
[2018-06-15] MEDS: METHIMAZOLE 5 MG TABLET PO SCH (08:39)
[2018-06-15] MEDS: BENZONATATE 100 MG CAPSULE (TESSALON) PO SCH ×3 (08:39→21:01)
[2018-06-15] MEDS: APIXABAN 2.5 MG TABLET PO SCH ×2 (08:40→21:04)
--- NOTE | 2018-06-15 08:40 | NUR ---
Medication patient is resting in bed, educated on medication uses and side effects, patient verbalized understanding and tolerated well, patient left urine sample in the bathroom will take to lab, no other needs at this time, bed at the lowest position, bed alarm on, call light within reach, two side rails up, fall and aspiration precautions in place.
--- NOTE | 2018-06-15 09:36 | NUR ---
Dr Overton rounds assessed patient at the bedside.
[2018-06-15] MEDS: NACL 0.9% 1,000 ML IV SCH ×2 (10:22→23:32)
[2018-06-15] MEDS: AZITHROMYCIN 500 MG in NS 250 ML IV SCH (10:22)
--- NOTE | 2018-06-15 10:23 | NUR ---
Medication patient is resting in bed, educated on medication uses and side effects, patient verbalized understanding and tolerated well, no other needs at this time, bed at the lowest position, bed alarm on, call light within reach, two side rails up, fall and aspiration precautions in place.
[2018-06-15 10:31] VITALS: BP_SYST 128
--- NOTE | 2018-06-15 10:34 | NUR ---
Dr Zamudio rounds assessing patient at the bedside, new orders, will follow through.
--- NOTE | 2018-06-15 11:20 | NUR ---
Dr. Dhillon rounds assessed patient at bedside, stated ok to give the patient the flu shot now, today, will follow up.
[2018-06-15 12:00] VITALS: BP_SYST 114
--- NOTE | 2018-06-15 14:00 | NUR ---
Medication patient is resting in bed, RT is present at the bedside, educated on medication uses and side effects, patient verbalized understanding and tolerated well, no other needs at this time, bed at the lowest position, bed alarm on, call light within reach, two side rails up, fall and aspiration precautions in place.
--- NOTE | 2018-06-15 15:40 | NUR ---
rounds patient is resting in bed,visitor is at the bedside, patient just asked for a new tissue box, no other needs at this time, IV line patent and intact, no other needs at this time, bed at the lowest position, bed alarm on, call light within reach, two side rails up, fall and aspiration precautions in place.
[2018-06-15 16:00] VITALS: BP_SYST 110
--- NOTE | 2018-06-15 17:30 | NUR ---
flu vaccine patient is resting in bed with family at the bedside, educated on flu vaccine and of side effects to be aware of, patient verbalized understanding and tolerated well, no other needs at this time, bed at the lowest position, bed alarm on, two side rails up, call light within reach, fall and aspiration precautions in place.
--- NOTE | 2018-06-15 18:29 | NUR ---
closing note patient is resting in bed, refilled her water cup as requested by patient, patient states that her cough may interrupt her sleeping at night, will make [facility] shift nurse aware, all needs met for the shift, will endorse report to [facility] shift nurse, IV line patent and intact and fluids running, bed at the lowest position, bed alarm on, call light within reach, two side rails up, fall and aspiration precautions in place.
--- NOTE | 2018-06-15 19:30 | NUR ---
INITIAL NOTES Handoff report received from offgoing nurse at the bedside. Patient is awake and alert, resting comfortably in bed. No SOB, no acute distress, no signs of pain or facial grimacing. Breathing is even and unlabored with visible chest rise and fall noted. Currently on 4L oximyzer with good O2 sat. IV site is intact, currently infusing IVF at the ordered rate, see emar. Bed is locked, in the lowest position, 2x side rails up, bed alarm is on. Call light is within reach. Explained plan of care to the patient. Patient verbalized understanding. Will continue with plan of care.
[2018-06-15 19:56] VITALS: BP_SYST 125
--- NOTE | 2018-06-15 20:30 | NUR ---
Patient refuses bed alarm at this time. States that she wants to ambulate to the restroom and back to bed independently. Encouraged patient to call for assistance.
[2018-06-15] MEDS: cefTRIAXone 1 GM in D5W 50 ML IV SCH (21:02)
--- NOTE | 2018-06-15 22:15 | NUR ---
Patient is currently resting comfortably in bed with eyes closed, sleeping. No SOB, no acute distress, no signs of pain or facial grimacing noted. Breathing is even and unlabored with visible chest rise and fall noted. Currently on 4L oxymizer. IV site is intact, dressing clean and dry, currently infusing IVF at the ordered rate, see eMAR. Bed is locked, in the lowest position, 2x side rails up. Call light is within reach.
[2018-06-15 23:31] VITALS: BP_SYST 114
--- NOTE | 2018-06-15 23:36 | NUR ---
Patient is resting comfortably in bed sleeping. Easily aroused by sound. No SOB, no acute distress, no complaints of pain at this time. IV site is intact, dressing clean and dry, currently infusing IVF at the ordered rate, see eMAR for details. Call light within reach. Encouraged patient to call.
[2018-06-16] MEDS: IPRATROPIUM BROM 0.5 MG/2.5 ML VIAL.NEB (ATROVENT) INH SCH ×4 (00:57→19:00)
--- NOTE | 2018-06-16 00:57 | NUR ---
Patient is resting comfortably in bed with eyes closed. Breathing is even and unlabored with visible chest rise and fall noted. Bed is locked, in the lowest position, 2x side rails up. Call light within reach.
--- NOTE | 2018-06-16 02:42 | NUR ---
Patient is resting comfortably in bed. No SOB, no acute distress, no complaints of side of pain or facial grimacing. Breathing is even and unlabored with visible chest rise and fall noted. IV site is intact, infusing IVF at the ordered rate, see eMAR. Call light is within reach.
--- NOTE | 2018-06-16 04:26 | NUR ---
Patient is resting comfortably in bed with eyes closed. No SOB, no acute distress, no signs of pain or facial grimacing. Breathing even and unlabored with visible chest rise and fall noted. Stable. Call light is within reach.
[2018-06-16 05:51] VITALS: BP_SYST 137
[2018-06-16] MEDS: PROPRANOLOL HCL 10 MG TABLET (INDERAL) PO SCH ×3 (05:51→20:35)
--- NOTE | 2018-06-16 06:36 | NUR ---
Patient is resting comfortably in bed, awake and watching television. No SOB, no acute distress, no complaints of pain. Currently on 4L oxymizer. IV site is intact, dressing clean and dry, currently infusing IVF, see eMAR. Bed is locked, in the lowest position, 2x side rails up. Call light within reach.
--- NOTE | 2018-06-16 07:45 | NUR ---
Closing Notes Handoff report given to oncoming dayshift nurse at the bedside. Patient is awake and alert, resting comfortably in bed. No SOB, no acute distress, no complaints of pain at this time. IV site is intact, dressing is clean and dry, currently infusing IVF at the ordered rate, see eMAR for details. Bed is locked, in the lowest position, 2x side rails up. Call light is within reach. Fall and safety precautions maintained. All needs have been met during this shift.
[2018-06-16 08:00] VITALS: BP_SYST 114
--- NOTE | 2018-06-16 08:00 | NUR ---
initial notes rec patient awake alert with hob elevated. ivf infusing well on the l hand. no infiltration noted. resp easy and unlabored. no sobn noted. denies pain, bed to the lowest position and side rails up and locked. call light within reached and knows when to call for assistance. will continue to monitor patient.
[2018-06-16] MEDS ORDERED: SOTALOL HCL 80 MG TABLET PO ONE (09:15)
[2018-06-16] MEDS: METHIMAZOLE 5 MG TABLET PO SCH (09:15)
[2018-06-16] MEDS: BENZONATATE 100 MG CAPSULE (TESSALON) PO SCH ×3 (09:16→20:32)
[2018-06-16] MEDS: OSELTAMIVIR PHOSPHATE 75 MG CAPSULE PO SCH ×2 (09:16→20:33)
[2018-06-16] MEDS: APIXABAN 2.5 MG TABLET PO SCH ×2 (09:17→20:34)
--- NOTE | 2018-06-16 10:00 | NUR ---
rounds ambulated with p.t on the hallway and seble well. call light within reached. o2 maximizer was changed to nasal cannula. will observed for any sob.
[2018-06-16] MEDS: AZITHROMYCIN 500 MG in NS 250 ML IV SCH (11:45)
[2018-06-16 12:00] VITALS: BP_SYST 118
--- NOTE | 2018-06-16 12:00 | NUR ---
rounds ambulates at bedside and seble well. no sob noted. call light within reached. denies pain.
--- NOTE | 2018-06-16 14:50 | NUR ---
Dietitian Recommendations * Recommend continuing regular diet per LP, RD Please refer to Nutrition Assessment for details.
[2018-06-16 16:00] VITALS: BP_SYST 110
--- NOTE | 2018-06-16 16:00 | NUR ---
rounds asleep when rounds made. no sob noted. call light within reached.
--- NOTE | 2018-06-16 18:30 | NUR ---
closing notes sitting at bedside. no sob noted witho2 at 2 liters via nasal canula. call light within reached. bed to the lowest position and side rails up and locked. stable needs attended.
--- NOTE | 2018-06-16 19:40 | NUR ---
Initial Note Received patient awake, alert and oriented. Denies any pain, SOB or n/v at this time. Coughs occasionally. Skin intact and no peripheral edema noted. Patient is ambulatory with steady gait. Had several BMs today (soft not diarrhea). Care and monitoring will be provided per protocol. Call light within reach. Bed at lowest position at all times. Refused to have bed alarm on. Needs attended. Uncontrolled a-fib on monitor. Kept warm and comfortable.
[2018-06-16 20:00] VITALS: BP_SYST 126
--- NOTE | 2018-06-16 20:30 | NUR ---
RN Note Due meds given, tolerated well. Patient ambulated to around the unit without any SOB or difficulty. Patient is back in bed. Kept warm and comfortable.
[2018-06-16] MEDS: SOTALOL HCL 80 MG TABLET PO SCH (20:33)
[2018-06-16] MEDS: cefTRIAXone 1 GM in D5W 50 ML IV SCH (20:35)
--- NOTE | 2018-06-16 22:00 | NUR ---
RN Note Patient in bed watching TV. No complaints at this time.
--- NOTE | 2018-06-17 | NUR ---
Transfer of care Endorsed to RN for continuity of care. Patient is not in distress.
--- NOTE | 2018-06-17 00:05 | NUR ---
ASSUMED PATIENT CARE Received report from Claudia. Patient resting in bed with eyes closed. Breathing unlabored and even on 2L oxygen via NC. Fall and safety precautions in place. Bed in lowest position, brake on, call light within reach. Will continue to monitor.
[2018-06-17] MEDS: IPRATROPIUM BROM 0.5 MG/2.5 ML VIAL.NEB (ATROVENT) INH SCH ×2 (01:00→07:00)
[2018-06-17 01:08] VITALS: BP_SYST 125
--- NOTE | 2018-06-17 02:34 | NUR ---
Patient resting in bed with eyes closed. Breathing unlabored and even on 2L oxygen via NC. Fall and safety precautions in place. Bed in lowest position, brake on, call light within reach. Will continue to monitor.
[2018-06-17] MEDS: PROPRANOLOL HCL 10 MG TABLET (INDERAL) PO SCH (06:04)
[2018-06-17 07:20] LABS: BASOPHILS % (AUTO) 0.3 % (0.0-2.0); EOSINOPHILS # (AUTO) 0.5 K/uL (0.0-0.4); EOSINOPHILS % (AUTO) 4.4 % (0.0-4.0); HEMATOCRIT 31.2 % (36-48); HEMOGLOBIN 10.4 g/dL (12.0-16.0); LYMPHOCYTES % (AUTO) 18.4 % (20.5-51.5); MEAN CORPUSCULAR HEMOGLOBIN 27 pg (27-31); MEAN CORPUSCULAR HGB CONC 33 % (32-36); MEAN CORPUSCULAR VOLUME 80 fL (79.0-98.0); MONOCYTES # (AUTO) 0.7 K/uL (0.0-1.0); MONOCYTES % (AUTO) 6.6 % (1.7-9.3); NEUTROPHILS # (AUTO) 7.8 K/uL (1.8-7.7); NEUTROPHILS % (AUTO) 70.3 % (40.0-70.0); PLATELET COUNT (AUTO) 492 K/uL (130-430); RED BLOOD CELL COUNT(AUTO) 3.91 MIL/uL (4.2-6.2); RED CELL DISTRIBUTION WIDTH 14.1 % (9.0-15.0)
--- NOTE | 2018-06-17 07:26 | NUR ---
CLOSING NOTE Gave report to Laurel. Patient resting in bed awake, alert, oriented x4. Breathing unlabored and even on 2L oxygen via NC. Fall and safety precautions in place. Bed in lowest position, brake on, call light within reach. Endorsed care to day shift nurse.
[2018-06-17 07:53] LABS: ALBUMIN 2.1 g/dL (3.4-4.8); CALCIUM 8.8 mg/dL (8.4-11.0); CREATININE 0.51 mg/dL (0.55-1.30); POTASSIUM 3.7 mmol/L (3.5-5.1); TOTAL BILIRUBIN 0.4 mg/dL (0.0-1.0)
--- NOTE | 2018-06-17 08:00 | NUR ---
initial notes rec patient awake alert with hob elevated. with o2 at 2 liters via nasal cannula.. resp easy and unlabored. no acute distress noted. bed in low position and side rails up and locked. call light within reached and knows when to call for assistance. will continue to monitor patient.
[2018-06-17 08:13] VITALS: BP_SYST 142
[2018-06-17] MEDS: METHIMAZOLE 5 MG TABLET PO SCH (09:38)
[2018-06-17] MEDS: APIXABAN 2.5 MG TABLET PO SCH (09:39)
[2018-06-17] MEDS: OSELTAMIVIR PHOSPHATE 75 MG CAPSULE PO SCH (09:40)
[2018-06-17] MEDS: BENZONATATE 100 MG CAPSULE (TESSALON) PO SCH (09:41)
[2018-06-17] MEDS: SOTALOL HCL 80 MG TABLET PO SCH (09:41)
[2018-06-17] MEDS ORDERED: DOXY100C PO (09:46)
[2018-06-17] MEDS ORDERED: BET(AF)80 PO (09:46)
[2018-06-17] MEDS ORDERED: APIX5TAB4 PO (09:47)
[2018-06-17] MEDS ORDERED: METH10TA80 PO (09:47)
[2018-06-17] MEDS ORDERED: PROP60CA6 PO (09:49)
[2018-06-17] MEDS ORDERED: ALBMDI INH (09:50)
--- NOTE | 2018-06-17 10:00 | NUR ---
rounds due meds was given and seble well. no sob noted. call light within reached.
[2018-06-17 12:02] VITALS: BP_SYST 139
[2018-06-17 15:02] VITALS: BP_SYST 139
--- NOTE | 2018-06-17 15:35 | NUR ---
closing notes pt is discharged after seen by dr taylor. pt at bedside to apple picking supervisor patient. instructed re appt with dr obey baeza md. also seen by dr valle in the room. stable , needs attended. was wheeled out via wheelchair.
== END 2018-06-17 15:50 | disposition home or self-care (01) | DRG 871 ==
LOC: SED 17:37 → SIC 19:12 → STU 06-14 12:42
PROVIDERS: ADMIT Internal Medicine; ATTEND Internal Medicine
DX: A41.9 Sepsis, unspecified organism (principal); J18.1 Lobar pneumonia, unspecified organism; J96.01 Acute respiratory failure with hypoxia; J12.9 Viral pneumonia, unspecified; N39.0 Urinary tract infection, site not specified; E87.1 Hypo-osmolality and hyponatremia; E03.9 Hypothyroidism, unspecified; D64.9 Anemia, unspecified; I48.0 Paroxysmal atrial fibrillation; J45.909 Unspecified asthma, uncomplicated; G47.30 Sleep apnea, unspecified; E78.00 Pure hypercholesterolemia, unspecified; E05.00 Thyrotoxicosis with diffuse goiter without thyrotoxic crisis or storm; I27.20 Pulmonary hypertension, unspecified; E66.9 Obesity, unspecified; E06.1 Subacute thyroiditis; K21.9 Gastro-esophageal reflux disease without esophagitis; Z79.01 Long term (current) use of anticoagulants; Z79.899 Other long term (current) drug therapy; Z83.49 Family history of other endocrine, nutritional and metabolic diseases; Z90.49 Acquired absence of other specified parts of digestive tract; Z90.710 Acquired absence of both cervix and uterus; Z98.51 Tubal ligation status; Z68.32 Body mass index [BMI] 32.0-32.9, adult
CPT/HCPCS: 36415; 36600; 71045; 71250-TC; 76536-TC; 80048; 80053; 80061; 80307; 81000-TC; 82550-TC; 82803-TC; 83540-TC; 83550-TC; 83605; 83880; 84436; 84439; 84443-TC; 84480; 84484; 85025; 85610-TC; 85651-TC; 86376; 86710; 86738; 87040-TC; 87070-TC; 87081; 87086; 87205-TC; 87449; 90656; 93005; 93306; 94640; 94760; 96365; 96367; 96368; 96375; 97116-GP; 97530-GP; 99285; G0378; G9035; J0282; J0456; J0696; J1160; J1650; J1885; J1956; J2270; J2405; J2543; J3370; J3475; J3480; J3490; J7030; J7050; J7060; J7613